=== PATIENT | male | born 1945 | race Caucasian/White ===

== ENCOUNTER 2020-11-03 12:55 | Outpatient (CLI) | payer MEDICARE, OTHER | END 2020-11-03 12:56 | disposition home or self-care (01) | LOC: BICCT 12:55 | PROVIDERS: ATTEND Neurological Surgery | DX: M48.062 Spinal stenosis, lumbar region with neurogenic claudication (principal); M47.816 Spondylosis without myelopathy or radiculopathy, lumbar region; N28.9 Disorder of kidney and ureter, unspecified; K57.30 Diverticulosis of large intestine without perforation or abscess without bleeding; N20.0 Calculus of kidney; Z98.1 Arthrodesis status | CPT/HCPCS: 72131 ==

== ENCOUNTER 2020-12-16 09:19 | Outpatient (CLI) | payer MEDICARE, OTHER | END 2020-12-16 09:20 | disposition home or self-care (01) | LOC: TBSIIMAG 09:19 | PROVIDERS: ATTEND Physician Assistant | DX: M48.062 Spinal stenosis, lumbar region with neurogenic claudication (principal); M47.816 Spondylosis without myelopathy or radiculopathy, lumbar region; M47.817 Spondylosis without myelopathy or radiculopathy, lumbosacral region; Z98.1 Arthrodesis status | CPT/HCPCS: 72100 ==

== ENCOUNTER 2021-02-02 08:25 | Outpatient (CLI) | payer MEDICARE, OTHER | END 2021-02-02 08:26 | disposition home or self-care (01) | LOC: TBSIIMAG 08:25 | PROVIDERS: ATTEND Physician Assistant | DX: M48.062 Spinal stenosis, lumbar region with neurogenic claudication (principal); M47.816 Spondylosis without myelopathy or radiculopathy, lumbar region; Z98.890 Other specified postprocedural states | CPT/HCPCS: 72100 ==

== ENCOUNTER 2022-07-23 13:20 | Outpatient (CLI) | payer MEDICARE, OTHER | END 2022-07-23 13:21 | disposition home or self-care (01) | LOC: TBSIIMAG 13:20 | PROVIDERS: ATTEND Physician Assistant | DX: S39.92XA Unspecified injury of lower back, initial encounter (principal); M54.50 Low back pain, unspecified; M47.816 Spondylosis without myelopathy or radiculopathy, lumbar region; Z98.890 Other specified postprocedural states | CPT/HCPCS: 72120 ==